=== PATIENT | male | born 1980 | race Asian ===

== ENCOUNTER 2024-12-22 14:10 | Emergency (ER) | payer OTHER ==
[~2024-12-22] VITALS: Ht 177.8 cm; Wt 78.2 kg
[2024-12-22 14:12] VITALS: BP 158/115; PULSE 100; RESP 18; TEMP 98; O2SAT 99
[2024-12-22] MEDS ORDERED: PRED-554 PO (15:37)
[2024-12-22] MEDS ORDERED: ACYC-138 PO (15:37)
== END 2024-12-22 15:46 | disposition home or self-care (01) ==
LOC: EMS 14:10
DX: G51.0 Bell's palsy (principal)
CPT/HCPCS: 99283; 82962; J7512